=== PATIENT | female | born 1960 | race Caucasian/White ===

== ENCOUNTER 2021-01-21 10:26 | Emergency (ER) | payer BC ==
[~2021-01-21] VITALS: Ht 157.5 cm; Wt 41.0 kg
[2021-01-21 10:57] VITALS: BP 149/74
[2021-01-21] MEDS ORDERED: HYDR-3686 PO (13:27)
[2021-01-21] MEDS ORDERED: PRED20TA PO (13:27)
[2021-01-21] MEDS ORDERED: BETA15CR4 TOP (13:27)
[2021-01-21] MEDS ORDERED: SULF1TAB45 PO (13:27)
== END 2021-01-21 13:41 | disposition home or self-care (01) ==
LOC: ER 10:26
DX: L25.8 Unspecified contact dermatitis due to other agents (principal); T36.4X5A Adverse effect of tetracyclines, initial encounter; I10 Essential (primary) hypertension; F17.200 Nicotine dependence, unspecified, uncomplicated; Z79.899 Other long term (current) drug therapy; Y92.89 Other specified places as the place of occurrence of the external cause
CPT/HCPCS: 99283

== ENCOUNTER 2021-01-31 09:43 | Emergency (ER) | payer BC ==
[~2021-01-31] VITALS: Ht 157.5 cm; Wt 41.6 kg
[~2021-01-31 09:43] MED LIST: BETA15CR4 TOP
[2021-01-31 10:30] VITALS: BP 132/74
[2021-01-31] MEDS ORDERED: PRED10TA23 PO (11:10)
== END 2021-01-31 11:37 | disposition home or self-care (01) ==
LOC: ER 09:44
DX: R21 Rash and other nonspecific skin eruption (principal); T36.1X5A Adverse effect of cephalosporins and other beta-lactam antibiotics, initial encounter; Z88.1 Allergy status to other antibiotic agents; Z88.5 Allergy status to narcotic agent; Z79.899 Other long term (current) drug therapy; Y92.89 Other specified places as the place of occurrence of the external cause
CPT/HCPCS: 99283